=== PATIENT | female | born 1980 | race Caucasian/White ===

== ENCOUNTER → 2017-08-30 | Outpatient (CLI) | payer BC, SELFPAY | PROVIDERS: Visit Provider Nurse Practitioner Obstetrics & Gynecology | DX: Z34.80 Encounter for supervision of other normal pregnancy, unspecified trimester (principal) | CPT/HCPCS: 36415 ==

== ENCOUNTER → 2017-09-13 10:18 | Outpatient (CLI) | payer BC, SELFPAY ==
--- NOTE | 2017-09-13 10:27 | US_ITS ---
US OB /maternal detail: INDICATION: ITS.REASON: US OB Complete 20+ Anatomy [id number] ORDERING PHYSICIAN: Eddie Mendez MD PATIENT AGE: 37 years TECHNIQUE: ultrasound transabdominal scanning. COMPARISON: No previous relevant studies. FINDINGS: Single viable intrauterine gestation. Breech position. Placenta: Posterior placenta grade 1. There is average amount fluid. The cervix appears satisfactory. Closed and measuring 4 cm in length. Complete survey performed and was unremarkable on the submitted images as in PACS. No discrete anomalies identified on survey imaging by technologist. Active fetus. Three-vessel cord with satisfactory umbilical cord insertion. 4- chamber heart noted. Survey of brain & ventricles. Face and neck survey unremarkable. Diaphragm and chest views unremarkable. Abdomen: Both kidneys noted and unremarkable. Stomach noted and satisfactory. Spine: Survey of the spine satisfactory with no anomalies identified nor imaged. Both arms and legs noted. Amniotic Fluid: Adequate. Maternal adnexa: No significant findings. Measurements: Average ultrasound age 19 weeks 4 days. Gestational Age 19 weeks 5 days. Estimated due date by ultrasound age 602/03/2018. Estimated weight 311 g. This is 48 percentile based on last menstrual period . BPD = 19 weeks 1 day OFD = 19 weeks 6 days HC = 18 weeks 6 days AC = 19 weeks 6 days FL = 20 weeks 1 day Heart Rate = 140 bpm Cerebellum = 20 weeks 0 days Humerus = 20 weeks 1 day HC/AC is 1.10. CI is 75%. FL/BPD is 75%. FL/AC is 22%. IMPRESSION: There is a single live fetus which is in the breech presentation with an average ultrasound age of 19 weeks 4 days. No obvious anomalies are evident. Please see above for detail
== END ==
PROVIDERS: Family Provider Family Medicine; PCP Family Medicine; Visit Provider Nurse Practitioner Obstetrics & Gynecology
DX: Z36.0 Encounter for antenatal screening for chromosomal anomalies (principal)
CPT/HCPCS: 76811

== ENCOUNTER → 2018-01-03 16:17 | Outpatient (REF) | payer BC, SELFPAY | LOC: LAB 16:17 | PROVIDERS: Visit Provider Nurse Practitioner Obstetrics & Gynecology | DX: Z34.90 Encounter for supervision of normal pregnancy, unspecified, unspecified trimester (principal) | CPT/HCPCS: 86403 ==

== ENCOUNTER → 2018-02-04 08:52 | Outpatient (CLI) | payer BC, SELFPAY ==
--- NOTE | 2018-02-04 08:53 | US_ITS ---
US OB biophysical profile: Doppler evaluation of the umbilical artery/SD ratio Indication: Passed due date ITS.REASON: US OB- BPP Growth- Post Dates (BRENDON:02/02/18) ORDERING PHYSICIAN: Eddie Mendez MD PATIENT AGE: 37 years FINDINGS: Single live fetus is present in cephalic presentation. The following parameters are obtained: Average ultrasound age is 38w3d . Estimated due date by ultrasound is 02/15/2018 . Estimated weight is 3398 g BPD: 39w1d OFD: OFD HC: 38w1d AC: 38w0d FL: 38w0d heart rate: 140 bpm. HC/AC: 0.98 (0.87-1.06) Cephalic index: 83% FL/BPD: 78% FL/AC: 22% (30-24%) Amniotic fluid index: 14 cm Qualitative AFV: 2 breathing movements: 2 Gross body movements: 2 Tone: 2 Biophysical profile score: 8/8 Doppler evaluation of the umbilical artery: SD ratio: 2.2 Resistive index: 0.55 Placenta: Posterior and fundal grade 2. No obvious previa IMPRESSION: There is a single live fetus in cephalic presentation. heart and body motion noted. Average gestational age by ultrasound is 38 weeks 3 days. Biophysical profile 8 of 8. KIRTI 14 cm Unremarkable Doppler evaluation of the umbilical artery
== END ==
PROVIDERS: Family Provider Family Medicine; PCP Family Medicine; Visit Provider Nurse Practitioner Obstetrics & Gynecology
DX: O48.0 Post-term pregnancy (principal)
CPT/HCPCS: 76819

== ENCOUNTER 2018-02-04 19:19 | Inpatient (IN) ==
[2018-02-04 19:44] VITALS: BP 135/86
[2018-02-04 20:24] LABS: Basophils # 0.1 K/mm3 (0-0.2); Basophils % 0.5 % (0.1-2.0); Eosinophils # 0.2 K/mm3 (0.0-0.4); Eosinophils % 1.9 % (0.1-12.0); Hematocrit 41.8 % (37.0-47.0); Hemoglobin 13.9 g/dL (12.2-16.2); Lymphocytes # 1.6 K/mm3 (0.7-4.5); Lymphocytes % 15.3 K/mm3 (10-50); Mean Corpuscular HGB Conc 33.3 g/dL (31.8-35.4); Mean Corpuscular Hemoglobin 30.6 pg (27.0-31.2); Mean Corpuscular Volume 91.8 fl (81-99); Mean Platelet Volume 7.9 fl (7.4-10.4); Monocytes # 0.6 K/mm3 (0.1-1.0); Monocytes % 5.7 % (1.7-9.3); Neutrophils # 7.7 K/mm3 (1.8-7.8); Neutrophils % 76.6 % (37.0-80.0); Platelet Count 230 K/mm3 (142-424); Red Blood Count 4.55 M/mm3 (4.20-5.40); Red Cell Distribution Width 13.6 % (11.5-17.5); White Blood Count 10.1 K/mm3 (4.8-10.8)
--- NOTE | 2018-02-04 21:45 | Progress Note ---
[facility] Anesthesia Checklist - Patient Identification Patient Identification: Arm Band - Structural Data Admitted From: Home Planned Operative Procedure/s: labor epidural Consent for Planned Operative Procedure(s) Verified: Yes Verified Documents: Surgical Consent, History and Physical - NPO Status Verified Time NPO: 00:00 - Additional verifications Anesthesia Reactions: No - Airway Assessment C-Spine Mobility Assessed: Yes (mp2) TMJ Mobility Assessed: Yes Dentition: Good Dentition - Neurological Assessment Level of Consciousness: Awake, Alert - Anesthesia Plan Anesthesia Risk discussed: Yes Anesthesia Plan: Verified ASA Class: II Anesthesia Type: MAC [facility] Anesthesia HX I have reviewed the patient's past medical history: Yes Medical History: Denies:: Anxiety, Asthma, Diabetes Mellitus Type 1, Hypertension Other Surgeries: Yes: Other Amputation: No Fractures: No *Family Hx:: No significant family history
--- NOTE | 2018-02-05 00:59 | History & Physical Report ---
*Admission Date: 02/04/18 *Chief complaint: contractions *History of present illness: 37 year old @ 40 10/10 presented with regular contractions. Denied LOF/ VB. Normal FM. Cervical change from 3 to 4 cm and admitted in active labor. complicated by post-dates, AMA and GBS +. ASCUS pap smear but HR HPV negative. [facility] History I have reviewed the patient's past medical history: Yes Medical History: Denies:: Anxiety, Asthma, Diabetes Mellitus Type 1, Hypertension Other Surgeries: Yes: Other Amputation: No Fractures: No - *Social History Educational Level: Completed College Smoking Status: Never smoker Alcohol Intake: never Substance Use Type: denies use Occupational Status: employed Housing: house Household Members: spouse - Psychiatric History Expresses thoughts of harming self/others: None Suicide Plan Description: No Plan Pschychiatric History:: Denies:: Anxiety *Family Hx:: No significant family history Para: 1 Review of Systems - Constitutional Denies chills, Denies fever(s) - Eyes Denies blurry vision, Denies double vision - ENT Denies bleeding gums, Denies nosebleed - *Cardiovascular Denies chest pain, Denies shortness of breath, Denies fast heart rate - *Respiratory Denies chest congestion, Denies cough, Denies shortness of breath - *Gastrointestinal Denies abdominal pain, Denies change in bowel habits, Denies change in stools, Denies nausea, Denies vomiting - *Genitourinary Reports other (+ contractions), Denies abnormal vaginal bleeding - *Musculoskeletal Denies muscle weakness - Integumentary/Breasts Denies rash - *Neurologic Denies headache(s), Denies numbness - Psychiatric Denies anxiety, Denies depression - Hematologic/Lymphatic Denies easy bleeding, Denies easy bruising Meds Home Medications Medication Instructions Recorded Confirmed Type ferrous sulfate 325 mg (65 mg 325 mg PO TID tab 09/25/17 History iron) tablet 1 tab PO QDAY 09/25/17 History vitamin,calcium,elmpolqe-niyq-syhhs acid tablet Allergies Allergy/AdvReac Type Severity Reaction Status Date / Time NKDA Allergy Unknown Uncoded 02/04/18 13:45 Exam Vital signs and Labs for Last 24 Hours: Temp Pulse Resp BP Pulse Ox 98.4 F 93 H 18 135/86 99 02/04/18 19:38 02/04/18 19:38 02/04/18 19:38 02/04/18 19:38 02/04/18 19:38 Laboratory Results - last 24 hr 02/04/18 19:45: Membrane Rupture Positive A 02/04/18 20:06: Blood Type B Positive, Antibody Screen Negative 02/04/18 20:10: WBC 10.1, RBC 4.55, Hgb 13.9, Hct 41.8, MCV 91.8, MCH 30.6, MCHC 33.3, RDW 13.6, Plt Count 230, MPV 7.9, Neut % (Auto) 76.6, Lymph % (Auto) 15.3, Fleming % (Auto) 5.7, Eos % (Auto) 1.9, Baso % (Auto) 0.5, Neut # (Auto) 7.7 , Lymph # (Auto) 1.6, Fleming # (Auto) 0.6, Eos # (Auto) 0.2, Baso # (Auto) 0.1 I & O for Last 24 hours: Intake & Output 02/02/18 02/03/18 02/04/18 02/05/18 11:59 11:59 11:59 11:59 Weight 164 lb - Constitutional no acute distress - *Routine HEENT Exam Head: Present: normocephalic, atraumatic. Absent: facial swelling Eye: Absent: conjunctival icterus, scleral injection ENT: Present: mucous membranes moist - Routine Chest/Breast/Axilla Exam Chest wall: Absent: tenderness - *Routine Respiratory Exam Absent: accessory muscle use, respiratory distress - *Routine Cardiovascular Exam Absent: tachycardia - *Routine Abdominal Exam Present: soft. Absent: tenderness, distended, guarding - *Routine Exam External: Absent: lesions, vulvar erythema, discharge Perineal: Absent: erythema, tenderness Comments: cervix 4/70 - *Routine Extremities Exam Absent: edema, tenderness - Routine Back/Spine/Pelvis Exam Back/Spine: Absent: vertebral tenderness - *Routine Skin Exam Present: dry, warm. Absent: rash - *Routine Neurological Exam Present: alert, oriented X3, normal speech. Absent: altered mental status - Routine Psychiatric Exam Present: normal affect. Absent: depressed, anxious H&P: Result - Labs Labs: Short CBC 02/04/18 Range/Units 20:10 WBC 10.1 (4.8-10.8) K/mm3 Hgb 13.9 (12.2-16.2) g/dL Hct 41.8 (37.0-47.0) % Plt Count 230 (142-424) K/mm3 - Imaging and Cardiology TESTING Status: image reviewed by me ( NST: 130's, normal variability, reactive. Category 1 tracing.) Assessment and Plan (1) Active labor at term Current visit: Yes Status: Acute Category: Medical (2) Post-dates Current visit: No Status: Acute Category: Medical Code(s): O48.0 - Post- term (3) GBS (group B Streptococcus carrier), +RV culture, currently Current visit: No Status: Acute Category: Medical Code(s): O99.820 - Streptococcus B carrier state complicating (4) AMA (advanced maternal age) multigravida 35+ Current visit: No Status: Chronic Category: Medical Code(s): O09.529 - Supervision of elderly multigravida, unspecified trimester - Assessment and plan all Dx Assessment and Plan for all problems:: Admission for active labor. Epidural at patient request. Pen G for GBS prophylaxis. Continuous monitoring. Anticipate .
--- NOTE | 2018-02-05 01:59 | Procedure Note ---
- Delivery Note Delivery Date:: 02/05/18 Delivery Time:: 01:15 Anesthesia Type: Epidural Was labor medically induced?: No Infant delivered prior to 39 weeks?: No Infant Gender: Female at 1 minute: 7 at 5 minutes: 9 LAC or MLE?: LAC Delivery Procedure:: Spontaneous vaginal delivery of vigorous female direct OA with nuchal cord x 1 reduced on field. No shoulder dystocia at delivery; delivered in controlled fashion and placed on maternal abdomen under supervision of nursing staff. Terminal meconium noted on field. Placenta spontaneously delivered and intact. Second degree perineal laceration repaired with 2-0 vicryl in layers without complication. Fundal massage with firm uterus below umbilicus at conclusion of procedure. EBL 300cc. Infant placed emin-ip-wapt; apgars 7 & 9. Mom/baby stable to recovery. Placental Delivery Description: Spontaneous
[2018-02-06 06:03] LABS: Hematocrit 34.3 % (37.0-47.0); Hemoglobin 11.2 g/dL (12.2-16.2)
--- NOTE | 2018-02-06 12:59 | Discharge Summary ---
General - General Admission date:: 02/04/18 Discharge date: 02/06/18 HPI HPI: 37 year old @ 40 10/10 presented with regular contractions. Denied LOF/ VB. Normal FM. Cervical change from 3 to 4 cm and admitted in active labor. complicated by post-dates, AMA and GBS +. ASCUS pap smear but HR HPV negative. Hospital Course Hospital Course: Normal , uncomplicated. course as expected and without any complications. Tolerating regular diet, ambulating and voiding without difficulty. Lochia less than menses and good pain control. Requesting Rx for pain medication at discharge. Objective Vital signs: Temp Pulse Resp BP Pulse Ox 98.4 F 93 H 18 135/86 99 02/04/18 19:38 02/04/18 19:38 02/04/18 19:38 02/04/18 19:38 02/04/18 19:38 no acute distress - *Routine Respiratory Exam Absent: accessory muscle use, respiratory distress - *Routine Cardiovascular Exam Absent: tachycardia - *Routine Abdominal Exam Present: soft. Absent: tenderness, distended Comments: FF below umbilicus - *Routine Extremities Exam Present: edema. Absent: calf tenderness, palpable cord Comments: 1+ - *Routine Skin Exam Present: dry, warm. Absent: rash - *Routine Neurological Exam Present: alert, oriented X3 - Routine Psychiatric Exam Absent: depressed, anxious Results Labs on day of discharge: Labs from last 24 hours 02/06/18 05:25 Hgb 11.2 L Hct 34.3 L DS: Diagnosis - Discharge Diagnosis (1) Active labor at term Status: Acute (2) Post-dates Status: Acute (3) GBS (group B Streptococcus carrier), +RV culture, currently Status: Acute (4) AMA (advanced maternal age) multigravida 35+ Status: Chronic (5) ASCUS of cervix with negative high risk HPV Status: Acute (6) Status: Resolved Discharge Plan - Patient Discharge Instructions ACTIVITY: Ambulate as tolerated, No heavy lifting DIET: regular diet Additional Instructions: F/u 6 weeks routine visit Plan repeat pap smear at PP visit for ASCUS HPV neg Patient Instructions: DI for Hemorrhage, Depression, DI for Labor and Delivery, Vaginal - Follow up Plan Unknown provider or service follow up:: 02/06/18 13:00 Lakisha May MD Disposition: Home, Self-Longterm Medications: Home Medications Medication Instructions Recorded Confirmed Type ferrous sulfate 325 mg (65 mg 325 mg PO TID tab 09/25/17 02/05/18 History iron) tablet 1 tab PO DAILY 09/25/17 02/05/18 History vitamin,calcium,ogmqyqgz-fegh-dzogl acid tablet Prescriptions/Medication Reconciliation: New Oxycodone HCl [OxyIR 5mg tablet] 5 mg PO Q4HP PRN #15 tab PRN Reason: Moderate Pain No Action vitamin,calcium,tsmdvdvo-wcvy-rtapt acid tablet 1 tab PO DAILY ferrous sulfate 325 mg (65 mg iron) tablet 325 mg PO TID tab
== END 2018-02-06 13:30 | disposition home or self-care (01) ==
LOC: OBOUT 19:19 → OB 19:21
PROVIDERS: ADMIT Nurse Practitioner Obstetrics & Gynecology; ATTEND Obstetrics & Gynecology